=== PATIENT | female | born 1960 | race Caucasian/White ===

== ENCOUNTER 2017-12-27 20:16 | Observation (INO) | payer SELFPAY ==
[2017-12-27] MEDS ORDERED: HYDROmorphONE/DILAUDID 1 MG/ML INJ IVP ONE (20:29)
[2017-12-27] MEDS ORDERED: NS 1,000 ML IV ONE (20:29)
[2017-12-27] MEDS ORDERED: ONDANSETRON 4 MG/2 ML VIAL IVP ONE (20:29)
--- NOTE | 2017-12-27 20:29 | CPEKG ---
Heart Rate: 61 RR Interval: 984 P-R Interval: 184 QRSD Interval: 96 QT Interval: 452 QTC Interval: 456 P [place]: 82 QRS [place]: 78 T Wave [place]: 69 EKG Severity - ABNORMAL ECG - EKG Impression: SINUS RHYTHM EKG Impression: RIGHT ATRIAL ABNORMALITY Electronically Signed By: César Gutierrez 27-Dec-2017 20:32:29
--- NOTE | 2017-12-27 20:32 | EDPHY ---
H & P Time Seen by Provider: 12/27/17 20:21 HPI/ROS: CHIEF COMPLAINT: Chest pain HISTORY OF PRESENT ILLNESS: Patient started getting symptomatic at 9:00 a.m. With multiple episodes of nausea vomiting and diffuse abdominal cramping. Around 5:00 p.m. She started having pain in the left side of her chest which radiates to her left shoulder. It is severe and worse with deep breathing or movement. Not associated with diaphoresis. Continues to have nausea. Did have 1 episode of diarrhea but 2 normal bowel movements this morning. Total of 4-6 episodes of vomiting since 6:00 p.m.. REVIEW OF SYSTEMS: Eye: no change in vision ENT: no sore throat Cardiac: no chest pain or syncope Pulmonary: no cough or SOB Abdomen: no vomiting, diarrhea, abdominal pain Musculoskeletal: no back pain Skin: no rash Neuro: no headache, does not have weakness or numbness in extremities or visual symptoms Constitutional: no fever : no urinary symptoms A comprehensive 10 point review of systems is otherwise negative aside from elements mentioned in the history of present illness. PAST MEDICAL HISTORY: Appendectomy in 2013 and endometriosis in 1996 Social history: Lives in [place], primary care provider Dr. Reyes General Appearance: Alert and conversant, cooperative. Moderately uncomfortable. Eyes: No scleral icterus. ENT, Mouth: Normal mucous membranes. Respiratory: Normal respiratory effort, breath sounds equal, lungs are clear to auscultation. Cardiovascular: Regular rate and rhythm. Gastrointestinal: Right and left upper quadrant abdominal tenderness without rebound or guarding. Neurological: Alert, face symmetric, normal motor and sensory in extremities. Moves all 4 extremities. Fluent speech. Skin: Warm and dry, no rashes. Musculoskeletal: No peripheral edema. Psychiatric: Not agitated. Emergency Department course/MDM: Zofran 4 mg IV and Dilaudid 1 mg IV. She has had Dilaudid before. Initial EKG does not show ST elevation. Will plan for troponin. Concern for esophageal rupture or intestinal perforation, will plan for i-STAT and CT chest abdomen and pelvis. 2134: Re-examined patient, she is feeling better but still has nausea and some pain. Negative LFTs and lipase. Negative troponin. CT scanning does not show evidence of esophageal rupture or aortic dissection, or intestinal perforation. Plan for observation overnight to control symptoms. Smoking Status: Former smoker Constitutional: Initial Vital Signs Temperature (C) 36.7 C 12/27/17 20:22 Heart Rate 56 L 12/27/17 20:22 Respiratory Rate 22 H 12/27/17 20:22 Blood Pressure 153/106 H 12/27/17 20:22 O2 Sat (%) 99 12/27/17 20:22 O2 Delivery Mode Room Air Allergies/Adverse Reactions: morphine Allergy (Verified 12/27/17 21:45) DROPS BLOOD PRESSURE Tetracyclines Allergy (Verified 12/27/17 21:45) Hives Home Medications: Medication Instructions Recorded NK [No Known Home Meds] 12/27/17 Medical Decision Making - Diagnostics EKG Interpretation: 12-lead EKG interpreted by me; official reading is in trace master. My interpretation is sinus rhythm rate 61 with right atrial abnormality, no acute ischemic changes. Imaging Results: Imaging Impressions Chest/Thorax CTA 12/27/17 20:37 Impression: 1. No pulmonary embolism. 2. Clear lungs. Findings and recommendations discussed with GEETA HICKMAN at 9: 20 PM hour, 12/27/2017. Final report concurs with initial preliminary interpretation. Abdomen/Pelvis CTA 12/27/17 20:57 Impression: 1. No dissection or vascular abnormalities. 2. Descending colonic diverticulosis. Findings and recommendations were discussed with Dr. Geeta Hickman at 9:12 PM, 12/27. Final report concurs with initial preliminary interpretation. Negative CT of chest and abdomen per Dr. Gomez at 3740. Imaging: Discussed imaging studies w/ train caller Radiologist Differential Diagnosis: Differential diagnosis considered for chest pain including but not limited to myocardial ischemia, aortic dissection, pericarditis, pulmonary embolus, chest wall pain, pleural inflammation and pulmonary infectious causes. Consult/Admit Bed Type: [place] [id number] - Data Points Laboratory Results: Laboratory Results 12/27/17 20:34 12/27/17 20:34 12/27/17 12/27/17 12/27/17 20:36 20:34 20:34 WBC 13.92 10^3/uL H 10^3/uL (3.80-9.50) RBC 4.19 10^6/uL 10^6/uL (4.18-5.33) Hgb 13.3 g/dL g/dL (12.6-16.3) POC Hgb 13.9 gm/dL gm/dL (12.6-16.3) Hct 38.2 % % (38.0-47.0) POC Hct 41 % % (38-47) MCV 91.2 fL fL (81.5-99.8) MCH 31.7 pg pg (27.9-34.1) MCHC 34.8 g/dL g/dL (32.4-36.7) RDW 13.0 % % (11.5-15.2) Plt Count 214 10^3/uL 10^3/uL (150-400) MPV 8.8 fL fL (8.7-11.7) Neut % (Auto) 86.7 % H % (39.3-74.2) Lymph % (Auto) 7.6 % L % (15.0-45.0) [place] % (Auto) 4.5 % % (4.5-13.0) Eos % (Auto) 0.0 % L % (0.6-7.6) Baso % (Auto) 0.4 % % (0.3-1.7) Nucleat RBC Rel Count 0.0 % % (0.0-0.2) Absolute Neuts (auto) 12.08 10^3/uL H 10^3/uL (1.70-6.50) Absolute Lymphs (auto) 1.06 10^3/uL 10^3/uL (1.00-3.00) Absolute Monos (auto) 0.62 10^3/uL 10^3/uL (0.30-0.80) Absolute Eos (auto) 0.00 10^3/uL L 10^3/uL (0.03-0.40) Absolute Basos (auto) 0.05 10^3/uL 10^3/uL (0.02-0.10) Absolute Nucleated RBC 0.00 10^3/uL 10^3/uL (0-0.01) Immature Gran % 0.8 % % (0.0-1.1) Immature Gran # 0.11 10^3/uL H 10^3/uL (0.00-0.10) POC Sodium 144 mEq/L mEq/L (135-145) Sodium 144 mEq/L mEq/L (135-145) POC Potassium 3.9 mEq/L mEq/L (3.3-5.0) Potassium 4.2 mEq/L mEq/L (3.5-5.2) POC Chloride 108 mEq/L mEq/L (97-110) Chloride 106 mEq/L mEq/L (97-110) Carbon Dioxide 22 mEq/l mEq/l (22-31) Anion Gap 16 mEq/L mEq/L (8-16) POC BUN 15 mg/dL mg/dL (7-23) BUN 14 mg/dL mg/dL (7-23) Creatinine 0.8 mg/dL mg/dL (0.6-1.0) POC Creatinine 0.7 mg/dL mg/dL (0.6-1.0) Estimated GFR > 60 Glucose 140 mg/dL H mg/dL (70-100) POC Glucose 146 mg/dL H mg/dL (70-100) Calcium 10.1 mg/dL mg/dL (8.5-10.4) Total Bilirubin 0.7 mg/dL mg/dL (0.1-1.4) Conjugated Bilirubin 0.2 mg/dL mg/dL (0.0-0.5) Unconjugated Bilirubin 0.5 mg/dL mg/dL (0.0-1.1) AST 19 IU/L IU/L (14-46) ALT 26 IU/L IU/L (9-52) Alkaline Phosphatase 58 IU/L IU/L (38-126) Troponin I < 0.012 ng/mL ng/mL (0.000-0.034) Total Protein 7.2 g/dL g/dL (6.3-8.2) Albumin 4.6 g/dL g/dL (3.5-5.0) Lipase 74 IU/L IU/L (23-300) Medications Given: Discontinued Medications Hydromorphone HCl (Dilaudid) 1 mg IVP EDNOW ONE Stop: 12/27/17 20:30 Last Admin: 12/27/17 20:37 Dose: 1 mg Sodium Chloride (Ns) 1,000 mls @ 0 mls/hr IV EDNOW ONE; Wide Open PRN Reason: Protocol Stop: 12/27/17 20:30 Last Admin: 12/27/17 20:37 Dose: 1,000 mls Ondansetron HCl (Zofran) 4 mg IVP EDNOW ONE Stop: 12/27/17 20:30 Last Admin: 03/01/18 20:37 Dose: 4 mg Point of Care Test Results: 12/27/17 20:36 POC Sodium 144 POC Potassium 3.9 POC Chloride 108 POC BUN 15 POC Creatinine 0.7 POC Glucose 146 H Departure - [facility] Clinical Impression: Nausea & vomiting Qualifiers: Vomiting type: unspecified Vomiting Intractability: non-intractable Qualified Code(s): R11.2 - Nausea with vomiting, unspecified Chest pain Qualifiers: Chest pain type: unspecified Qualified Code(s): R07.9 - Chest pain, unspecified Condition: Good
[2017-12-27] MEDS ORDERED: HYDROmorphONE/DILAUDID 2 MG/ML INJ ONE (20:35)
[2017-12-27] MEDS ORDERED: IOPAMIDOL (ISOVUE 370) 100 ML BTL IV ONE (20:40)
[2017-12-27 20:42] LABS: PLATELET COUNT 214 10^3/uL (150-400)
[2017-12-27] MEDS ORDERED: ONDANSETRON DISINTEGRATING 4 MG TAB PO PRN (22:12)
[2017-12-27] MEDS ORDERED: ACETAMINOPHEN 325 MG TAB PO PRN (22:12)
[2017-12-27] MEDS ORDERED: oxyCODONE IR 5 MG TAB PO PRN (22:12)
[2017-12-27] MEDS ORDERED: ONDANSETRON 4 MG/2 ML VIAL IVP PRN (22:12)
[2017-12-27] MEDS ORDERED: PROMETHAZINE HCL 25 MG/ML INJ IVP PRN (22:12)
[2017-12-27] MEDS ORDERED: D5W 1/2 NS W/ 20 KCl/L 1,000 ML IV SCH (22:15)
--- NOTE | 2017-12-27 23:24 | PDGENHP ---
History and Physical - Chief Complaint Abdominal pain, vomiting - History of Present Illness 56 yo F w/o significant PMHx presents with abdominal pain, nausea, and vomiting. Patient states that she first noticed belly cramps earlier today. This was followed over the next few hours by onset of nausea and vomiting. Symptoms progressed to involve left sided chest pain and flank pain. She had one loose bowel movement in the morning but none since. 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 She has minimal symptoms by the time of my evaluation. In the ED work-up was unremarkable including CT chest and abdomen. She is being admitted for observation. History Information - Allergies/Home Medication List Allergies/Adverse Reactions: morphine Allergy (Verified 12/27/17 21:45) DROPS BLOOD PRESSURE Tetracyclines Allergy (Verified 12/27/17 21:45) Hives Home Medications: NK [No Known Home Meds] 12/27/17 [Last Taken Unknown] I have personally reviewed and updated: family history, medical history - Past Medical History no pertinent PMH - Surgical History Reports: appendectomy - Family History Positive for: hypertension - Social History Smoking Status: Former smoker Review of Systems Review of Systems: ROS: 10pt was reviewed & negative except for what was stated in HPI & below Physical Exam Physical Exam: Temp Pulse Resp BP Pulse Ox 36.7 C 76 20 102/60 96 12/27/17 22:46 12/27/17 22:46 12/27/17 22:46 12/27/17 22:46 12/27/17 22:46 Constitutional: no apparent distress, not in pain Eyes: PERRL, EOMI Ears, Nose, Mouth, Throat: moist mucous membranes, no oral mucosal ulcers Cardiovascular: regular rate and rhythym, no murmur, rub, or gallop Respiratory: no respiratory distress, clear to auscultation Gastrointestinal: normoactive bowel sounds, tenderness (Mild, jade-umbilical) Skin: warm, normal color Musculoskeletal: full muscle strength, no muscle tenderness Neurologic: AAOx3, CN II-XII Intact Psychiatric: interacting appropriately, not anxious Lab Data & Imaging Review 12/27/17 20:34 12/27/17 20:34 WBC 13.92 10^3/uL (3.80-9.50) H 12/27/17 20:34 RBC 4.19 10^6/uL (4.18-5.33) 12/27/17 20:34 Hgb 13.3 g/dL (12.6-16.3) 12/27/17 20:34 POC Hgb 13.9 gm/dL (12.6-16.3) 12/27/17 20:36 Hct 38.2 % (38.0-47.0) 12/27/17 20:34 POC Hct 41 % (38-47) 12/27/17 20:36 MCV 91.2 fL (81.5-99.8) 12/27/17 20:34 MCH 31.7 pg (27.9-34.1) 12/27/17 20:34 MCHC 34.8 g/dL (32.4-36.7) 12/27/17 20:34 RDW 13.0 % (11.5-15.2) 12/27/17 20:34 Plt Count 214 10^3/uL (150-400) 12/27/17 20:34 MPV 8.8 fL (8.7-11.7) 12/27/17 20:34 Neut % (Auto) 86.7 % (39.3-74.2) H 12/27/17 20:34 Lymph % (Auto) 7.6 % (15.0-45.0) L 12/27/17 20:34 [place] % (Auto) 4.5 % (4.5-13.0) 12/27/17 20:34 Eos % (Auto) 0.0 % (0.6-7.6) L 12/27/17 20:34 Baso % (Auto) 0.4 % (0.3-1.7) 12/27/17 20:34 Nucleat RBC Rel Count 0.0 % (0.0-0.2) 12/27/17 20:34 Absolute Neuts (auto) 12.08 10^3/uL (1.70-6.50) H 12/27/17 20:34 Absolute Lymphs (auto) 1.06 10^3/uL (1.00-3.00) 12/27/17 20:34 Absolute Monos (auto) 0.62 10^3/uL (0.30-0.80) 12/27/17 20:34 Absolute Eos (auto) 0.00 10^3/uL (0.03-0.40) L 12/27/17 20:34 Absolute Basos (auto) 0.05 10^3/uL (0.02-0.10) 12/27/17 20:34 Absolute Nucleated RBC 0.00 10^3/uL (0-0.01) 12/27/17 20:34 Immature Gran % 0.8 % (0.0-1.1) 12/27/17 20:34 Immature Gran # 0.11 10^3/uL (0.00-0.10) H 12/27/17 20:34 POC Sodium 144 mEq/L (135-145) 12/27/17 20:36 Sodium 144 mEq/L (135-145) 12/27/17 20:34 POC Potassium 3.9 mEq/L (3.3-5.0) 12/27/17 20:36 Potassium 4.2 mEq/L (3.5-5.2) 12/27/17 20:34 POC Chloride 108 mEq/L (97-110) 12/27/17 20:36 Chloride 106 mEq/L (97-110) 12/27/17 20:34 Carbon Dioxide 22 mEq/l (22-31) 12/27/17 20:34 Anion Gap 16 mEq/L (8-16) 12/27/17 20:34 POC BUN 15 mg/dL (7-23) 12/27/17 20:36 BUN 14 mg/dL (7-23) 12/27/17 20:34 Creatinine 0.8 mg/dL (0.6-1.0) 12/27/17 20:34 POC Creatinine 0.7 mg/dL (0.6-1.0) 12/27/17 20:36 Estimated GFR > 60 12/27/17 20:34 Glucose 140 mg/dL (70-100) H 12/27/17 20:34 POC Glucose 146 mg/dL (70-100) H 12/27/17 20:36 Calcium 10.1 mg/dL (8.5-10.4) 12/27/17 20:34 Total Bilirubin 0.7 mg/dL (0.1-1.4) 12/27/17 20:34 Conjugated Bilirubin 0.2 mg/dL (0.0-0.5) 12/27/17 20:34 Unconjugated Bilirubin 0.5 mg/dL (0.0-1.1) 12/27/17 20:34 AST 19 IU/L (14-46) 12/27/17 20:34 ALT 26 IU/L (9-52) 12/27/17 20:34 Alkaline Phosphatase 58 IU/L (38-126) 12/27/17 20:34 Troponin I < 0.012 ng/mL (0.000-0.034) 12/27/17 20:34 Total Protein 7.2 g/dL (6.3-8.2) 12/27/17 20:34 Albumin 4.6 g/dL (3.5-5.0) 12/27/17 20:34 Lipase 74 IU/L (23-300) 12/27/17 20:34 Imaging Review: Imaging Impressions Chest/Thorax CTA 12/27/17 20:37 Impression: 1. No pulmonary embolism. 2. Clear lungs. Findings and recommendations discussed with GEETA HICKMAN at 9: 20 PM hour, 12/27/2017. Final report concurs with initial preliminary interpretation. Abdomen/Pelvis CTA 12/27/17 20:57 Impression: 1. No dissection or vascular abnormalities. 2. Descending colonic diverticulosis. Findings and recommendations were discussed with Dr. Geeta Hickman at 9:12 PM, 12/27. Final report concurs with initial preliminary interpretation. Assessment & Plan Assessment: 56 yo F presents with abdominal pain, nausea, and vomiting. Plan: 1. Abdominal pain - With significant nausea and vomiting as well as some chest pain. Etiology is unclear as LFTs are normal and CT Chest and A/P were unremarkable. VS WNL and symptoms now improving. - Admit for observation - Cardiac rule out w/ telemetry monitoring, trend cardiac enzymes - Clear liquids, anti-emetics, mIVF - Oxycodone and Dilaudid PRN for pain control 2. Leukocytosis - I suspect this is reactive from above. Would send stool PCR if diarrhea were to recur. Diet - Clears, ADAT Code - Full Ppx - LMWH Dispo - Admit under observation status
[2017-12-28] MEDS: HYDROmorphone HCL/NS 0.5 MG/ML SYR IVP PRN ×2 (01:23→08:40)
[2017-12-28 04:27] LABS: PLATELET COUNT 172 10^3/uL (150-400)
[2017-12-28] MEDS ORDERED: ENOXAPARIN 40 MG/0.4 ML SYR SC SCH (09:00)
[2017-12-28 12:04] VITALS: BP 105/67; PULSE 61; RESP 17; TEMP 98.4; O2SAT 96
--- NOTE | 2017-12-28 13:10 | HOSPPROG ---
Hospitalist Progress Note Assessment/Plan: 56 yo F w abd pain, resolved home see dc summary Subjective: abd pain resolved Objective: Vital Signs Temp Pulse Resp BP Pulse Ox 36.9 C 61 17 105/67 96 12/28/17 12:03 12/28/17 12:03 12/28/17 12:03 12/28/17 12:03 12/28/17 12:03 Laboratory Results 12/28/17 03:20 12/28/17 03:20 12/27/17 12/28/17 12/29/17 05:59 05:59 05:59 Intake Total 2140 Balance 2140 - Physical Exam Constitutional: no apparent distress, appears nourished Eyes: PERRL, anicteric sclera Ears, Nose, Mouth, Throat: moist mucous membranes, hearing normal Cardiovascular: regular rate and rhythym, no murmur, rub, or gallop Respiratory: no respiratory distress, no rales or rhonchi Gastrointestinal: normoactive bowel sounds, No guarding, No rebound Genitourinary: no bladder fullness, No tucker in urethra Skin: warm, normal color Musculoskeletal: full muscle strength, no muscle tenderness Neurologic: AAOx3 ICD10 Worksheet Patient Problems: Problems Problem Status Onset Chest pain Acute Nausea & vomiting Acute Acute appendicitis Acute
--- NOTE | 2017-12-28 15:13 | GDS ---
[f rep st] DISCHARGE SUMMARY DISCHARGE DIAGNOSIS: 1. Abdominal pain. 2. Likely viral gastroenteritis. HOSPITAL COURSE: Please see admission history and physical by Dr. Ayan Phillips. The patient presented with abdominal pain. It was preceded by an episode of diarrhea followed by vomiting. She had normal LFTs. She had a CT of the abdomen and chest, both of which were unremarkable. She had ne gative troponins and nonischemic EKG. This is felt consistent with viral gastroenteritis. Discharge d home . /[id number]/MODL
== END 2017-12-28 13:33 | disposition home or self-care (01) ==
LOC: F2W 22:16
PROVIDERS: ADMIT Family Medicine; ATTEND Internal Medicine
DX: R10.9 Unspecified abdominal pain (principal); R11.2 Nausea with vomiting, unspecified; R19.7 Diarrhea, unspecified; R07.9 Chest pain, unspecified; D72.829 Elevated white blood cell count, unspecified; E86.9 Volume depletion, unspecified; K57.30 Diverticulosis of large intestine without perforation or abscess without bleeding; Z87.891 Personal history of nicotine dependence
CPT/HCPCS: 82947-QW; 96374; G0378; J1170; J2405; Q9967